=== PATIENT | female | born 1990 | race Caucasian/White ===

== ENCOUNTER 2022-08-07 06:21 | Inpatient (IN) | payer MEDICAID ==
[2022-08-07] MEDS: Lactated Ringers 1,000 ML IV SCH ×2 (10:55→11:56)
[2022-08-07] MEDS ORDERED: Sodium Chloride 0.9% 20 ML SDV IV PRN (11:02)
[2022-08-07] MEDS ORDERED: Misoprostol 200 MCG Tab PO PRN (11:02)
[2022-08-07] MEDS ORDERED: Carboprost Tromethamine 250 MCG/1 ML Amp IM PRN (11:02)
[2022-08-07] MEDS ORDERED: Tranexamic Acid 1,000 MG in Sodium Chloride 0.9% 100 ML IV PRN (11:02)
[2022-08-07] MEDS ORDERED: Butorphanol 1 MG/ML SDV IVPUSH PRN (11:02)
[2022-08-07] MEDS ORDERED: Sodium Chloride 0.9% 10 ML Syringe FLUSH PRN (11:02)
[2022-08-07] MEDS ORDERED: Lidocaine 1% 50 ML MDV INJECT PRN (11:02)
[2022-08-07] MEDS ORDERED: Water For Irrigation,Sterile 1,000 ML Container IRR PRN (11:02)
[2022-08-07] MEDS ORDERED: Methylergonovine 0.2 MG/1 ML Amp IM PRN (11:02)
[2022-08-07] MEDS ORDERED: Sodium Chloride 0.9% 2.5 ML Syringe FLUSH PRN (11:02)
[2022-08-07] MEDS ORDERED: Oxytocin/0.9 % Sodium Chloride 30 UNIT/500 ML BAG IV SCH (11:15)
[2022-08-07] MEDS ORDERED: Dexmedetomidine 200 MCG/2 ML SDV ONE (11:27)
[2022-08-07] MEDS ORDERED: Ropivacaine/PF 400 MG/200 ML PCA ONE (11:27)
[2022-08-07] MEDS ORDERED: Phenylephrine HCl 0.5 MG/5 ML AMP ONE (11:27)
[2022-08-07] MEDS ORDERED: Phenylephrine HCl 0.5 MG/5 ML AMP IVPUSH PRN (11:37)
[2022-08-07] MEDS ORDERED: ePHEDrine 50 MG/ML SDV IVPUSH PRN ×2 (11:37)
[2022-08-07] MEDS ORDERED: Phenylephrine HCl 0.5 MG/5 ML AMP IVPUSH SCH (11:45)
[2022-08-07] MEDS ORDERED: Ropivacaine HCl/PF 400 MG in Premix Bag 1 BAG EPIDUR SCH (11:45)
[2022-08-07] MEDS ORDERED: Witch Hazel Medicated Pads 40/Jar TOP PRN (16:04)
[2022-08-07] MEDS ORDERED: Docusate Sodium 100 MG Cap PO PRN (16:04)
[2022-08-07] MEDS ORDERED: Benzocaine/Menthol 20%-0.5% Spray 78 GM Cannister TOP PRN (16:04)
[2022-08-07] MEDS ORDERED: Bisacodyl 10 MG Supp RECTAL PRN (16:04)
[2022-08-07] MEDS ORDERED: Ibuprofen 400 MG Tab PO PRN (16:04)
[2022-08-07] MEDS ORDERED: Acetaminophen 500 MG Tab PO PRN (16:04)
[2022-08-07] MEDS ORDERED: Lanolin 100% Cream 7 GM Tube TOP PRN (16:04)
[2022-08-07] MEDS: Ibuprofen 800 MG Tab PO PRN (18:28)
[2022-08-07] MEDS: Acetaminophen 500 MG Tab PO PRN (20:16)
[2022-08-07] MEDS: oxyCODONE 5 MG Tab PO PRN (22:56)
[2022-08-08] MEDS: Acetaminophen 500 MG Tab PO PRN ×2 (03:10→10:23)
[2022-08-08] MEDS: Ibuprofen 800 MG Tab PO PRN ×3 (03:10→16:30)
[2022-08-08] MEDS: oxyCODONE 5 MG Tab PO PRN (06:24)
== END 2022-08-08 18:40 | disposition home or self-care (01) | DRG 807 ==
LOC: MW.OBCHECK 06:21 → MW.OB 06:24 → MW.OBCHECK 11:01 → MW.OB 11:02 → OBSVTOIN 15:53 → MW.OB 08-08 00:30
PROVIDERS: ADMIT Obstetrics & Gynecology; ATTEND Obstetrics & Gynecology
PROC: 10E0XZZ Delivery of Products of Conception, External Approach (ICD-10-PCS; principal; 2022-08-07)
PROC: 10907ZC Drainage of Amniotic Fluid, Therapeutic from Products of Conception, Via Natural or Artificial Opening (ICD-10-PCS; 2022-08-07)
PROC: 3E0R3BZ Introduction of Anesthetic Agent into Spinal Canal, Percutaneous Approach (ICD-10-PCS; 2022-08-07)
PROC: 00HU33Z Insertion of Infusion Device into Spinal Canal, Percutaneous Approach (ICD-10-PCS; 2022-08-07)
DX: O99.344 Other mental disorders complicating childbirth (principal); Z37.0 Single live birth; O77.0 Labor and delivery complicated by meconium in amniotic fluid; Z20.822 Contact with and (suspected) exposure to COVID-19; F41.9 Anxiety disorder, unspecified; F32.A Depression, unspecified; Z88.0 Allergy status to penicillin; Z91.018 Allergy to other foods; Z87.891 Personal history of nicotine dependence; Z3A.38 38 weeks gestation of pregnancy
CPT/HCPCS: 36415; 51702; 59025; 59409; 85014; 85018; 85027; 86592; 86850; 86900; 86901; A9270-GY; J2370; J2590; J2795; J3490; J7120; U0002

== ENCOUNTER 2024-11-19 15:56 | Emergency (ER) | payer MEDICAID ==
[2024-11-19 16:56] LABS: BASOPHILS ABSOLUTE AUTO 0.01 K/uL (0.00-0.20); BASOPHILS PERCENT AUTO 0.2 % (0.0-1.0); EOSINOPHILS ABSOLUTE AUTO 0.25 K/uL (0.00-0.45); EOSINOPHILS PERCENT AUTO 4.4 % (0.0-6.0); IMMATURE GRAN ABSOLUTE AUTO 0.01 K/uL (0.00-0.05); IMMATURE GRAN PERCENT AUTO 0.2 % (0.0-0.4); LYMPHOCYTES ABSOLUTE AUTO 1.41 K/uL (1.00-4.80); LYMPHOCYTES PERCENT AUTO 24.8 % (24.0-44.0); MEAN CORPUSCULAR HEMOGLOBIN 29.9 pg (28.0-32.0); MEAN CORPUSCULAR HGB CONC 33.3 g/dL (32.0-36.0); MEAN CORPUSCULAR VOLUME 89.8 fL (83.0-99.0); MEAN PLATELET VOLUME 9.9 fL (9.4-12.3); MONOCYTES ABSOLUTE AUTO 0.26 K/uL (0.00-0.80); MONOCYTES PERCENT AUTO 4.6 % (0.0-8.0); NEUTROPHILS ABSOLUTE AUTO 3.75 K/uL (1.80-7.70); NEUTROPHILS PERCENT AUTO 65.8 % (41.0-71.0); PLATELET COUNT,PLT 257 K/uL (150-400); RED BLOOD CELL COUNT 4.01 M/uL (4.10-5.30); WHITE BLOOD CELL COUNT,WBC 5.69 K/uL (3.9-11.3)
[2024-11-19 17:25] LABS: ALBUMIN 3.8 g/dL (3.4-5.0); BLOOD UREA NITROGEN,BUN 12 mg/dL (7.0-18.0); CALCIUM 8.4 mg/dL (8.5-10.1); CARBON DIOXIDE,CO2 26.7 mmol/L (21.0-32.0); CHLORIDE,CL 107 mmol/L (98-107); CREATININE 0.8 mg/dL (0.6-1.0); EST CRCL DRUG DOSING (CG) 85.56 mL/min; GLUCOSE RANDOM 84 mg/dL (74-106); POTASSIUM,K 3.8 mmol/L (3.5-5.1); PROTEIN TOTAL,TP 6.5 g/dL (6.4-8.2); SODIUM,NA 143 mmol/L (136-145)
[2024-11-19 17:26] LABS: A/G RATIO 1.4 (0.9-1.6); ALANINE AMINOTRANSFERASE,ALT 23 IU/L (14-63); ALKALINE PHOSPHATASE 68 U/L (46-116); ASPARTATE AMNIOTRANSFERASE,AST 17 IU/L (15-37); BILIRUBIN TOTAL 0.4 mg/dL (0.2-1.0)
[2024-11-19 17:28] LABS: ESTIMATED GFR 99 mL/min (>60)
[2024-11-19] MEDS: Acetaminophen 500 MG Tab PO ONE (18:27)
== END 2024-11-19 18:51 | disposition home or self-care (01) ==
LOC: MW.ED 15:56
DX: J40 Bronchitis, not specified as acute or chronic (principal); M79.18 Myalgia, other site; Z75.3 Unavailability and inaccessibility of health-care facilities; Z91.018 Allergy to other foods; Z88.0 Allergy status to penicillin; Z79.899 Other long term (current) drug therapy
CPT/HCPCS: 36415; 71046; 80053; 84484; 85025; 87651; 93005; 99285; A9270; 93010; 99283